=== PATIENT | female | born 1955 | race Caucasian/White ===

== ENCOUNTER → 2018-11-16 | Outpatient (CLI) | payer BC ==
[~2018-11-16] MED LIST: BARIUM SULFATE 40% (APPLE) 148 GM PWD. PO ONE
--- NOTE | 2018-11-16 11:36 | RAD ---
Indication: Dysphagia. TECHNIQUE: Fluoroscopy-guided video swallow study with total 4 time of 1.9 seconds and multiple fluoroscopy images captured. COMPARISON: None FINDINGS: Aspiration below the level of cords is seen with thin liquids bouncing of the vallecular residue. The residue seen to clear with patient swallowing with head turned study was right side. No aspiration or penetration seen with solid food. IMPRESSION: As above. Please see detailed notes by speech pathologist in patient's chart for full information. Electronically signed by: Floyd Posey DO (11/16/2018 11:33 AM) [facility]
== END | disposition home or self-care (01) ==
LOC: RAD 09:55
PROVIDERS: ATTEND Internal Medicine
DX: R13.10 Dysphagia, unspecified (principal); R47.1 Dysarthria and anarthria
CPT/HCPCS: 74230; 92526; 92611

== ENCOUNTER 2021-11-29 20:30 | Emergency (ER) | payer BC, OTHER ==
[~2021-11-29] VITALS: Ht 172.7 cm; Wt 75.0 kg
[2021-11-29 21:20] LABS: BASO % 1 % (0-3); EOS # 0.1 x10^3/uL (0.0-0.7); EOS % 2 % (0-3); HEMATOCRIT 39.4 % (36.0-47.0); LYMPH # 1.8 x10^3/uL (1.0-4.8); LYMPH % 23 % (24-48); MEAN CORPUSCULAR HEMOGLOBIN 31 pg (25-35); MEAN CORPUSCULAR HGB CONC 33 g/dL (31-37); MEAN CORPUSCULAR VOLUME 93 fL (79-100); MONO # 0.4 x10^3/uL (0.0-1.1); MONO % 5 % (0-9); NEUT # 5.6 x10^3/uL (1.8-7.7); NEUT % 70 % (31-73); PLATELET COUNT 287 x10^3/uL (140-400); RED BLOOD COUNT 4.26 x10^6/uL (3.50-5.40); RED CELL DISTRIBUTION WIDTH 13.8 % (11.5-14.5)
[2021-11-29 21:29] LABS: CALCIUM 9.3 mg/dL (8.5-10.1); CREATININE 0.7 mg/dL (0.6-1.0); GFR 83.5; POTASSIUM 4.2 mmol/L (3.5-5.1)
[2021-11-29 21:35] LABS: ALBUMIN 3.9 g/dL (3.4-5.0); ALBUMIN/GLOBULIN RATIO 1.2 (1.0-1.7); TOTAL BILIRUBIN 0.2 mg/dL (0.2-1.0); TOTAL PROTEIN 7.2 g/dL (6.4-8.2)
--- NOTE | 2021-11-29 21:45 | RAD ---
XR NECK SOFT TISSUE, XR CHEST 1V INDICATION: choking episode on chicken food bolus . COMPARISON STUDY: None. FINDINGS: Neck: No prevertebral soft tissue swelling. No radiopaque foreign body. Lungs: Normal lung volume. No pulmonary mass or consolidation. The tracheobronchial tree and hilar st ructures are normal. Pleura: No pleural effusion or pneumothorax. Heart and Mediastinum: The cardiomediastinal silhouette is normal. The great vessels of the thorax ar e normal. Bones and Soft Tissues: The bones and soft tissues are within normal limits. IMPRESSION: 1. No radiopaque foreign body. 2. No prevertebral soft tissue swelling. 3. No focal airspace disease. Electronically signed by: Marcos Shea MD (11/29/2021 9:42 PM) [facility]arolina
--- NOTE | 2021-11-29 22:30 | PHYS DOC ---
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 She presents for evaluation following a choking episode at home. Patient was eating chicken and took a big bite and began choking. performed the Heimlich maneuver twice and called EMS for help. On EMS arrival patient had elevated work of breathing and was requiring significant supplemental oxygen (she was on a nonrebreather mask en route). EMS suctioned several times and retrieved some chicken from the patient's pharynx. On arrival to the emergency department patient is alert and oriented x4, pleasantly and appropriately interactive and in absolutely no acute distress with appropriate vital signs. We have been able to de-escalate her to minimal nasal cannula oxygen supplementation. She is able to speak comfortably in full sentences and states her throat is a little sore but that otherwise she feels fine. She felt well before the onset of the choking episode. Review of Systems Review of Systems A 12 point review of systems was completed and was negative except where noted in HPI above. Allergies Allergies Allergies Coded Allergies Type Severity Reaction Last Updated Verified Sulfa (Sulfonamide Antibiotics) Allergy Intermediate 11/29/21 Yes gluten Allergy Intermediate 11/29/21 Yes Physical Exam Physical Exam 66-year-old female appearing nontoxic and in no acute distress. Head is normocephalic and atraumatic. Neck is supple and nontender. Oropharynx is moist. No posterior oropharyngeal erythema, tonsillar exudate or swelling or uvular deviation. Patient is tolerating secretions normally and speaking comfortably in a normal tone of voice. Lungs are clear to auscultation at all stations. No increased work of breathing, no tachypnea. There is a normal S1 and S2 without rubs or gallops and capillary refill is appropriate, less than 2 seconds globally. There is a regular rhythm. Abdomen is soft, nontender n ondistended. Skin is warm and dry without cyanosis, clubbing or edema. Psychiatrically, the patient demonstrates appropriate mood and affect and is alert. Current Patient Data Vital Signs Vital Signs Date Time Temp Pulse Resp B/P (MAP) Pulse Ox O2 Delivery O2 Flow Rate FiO2 11/29/21 20:30 97.9 84 20 155/69 (97) 99 NonRebreather Mask 4.0 97.9 Lab Values Laboratory Tests Test 11/29/21 21:05 White Blood Count 8.0 x10^3/uL (4.0-11.0) Red Blood Count 4.26 x10^6/uL (3.50-5.40) Hemoglobin 13.0 g/dL (12.0-15.5) Hematocrit 39.4 % (36.0-47.0) Mean Corpuscular Volume 93 fL (79-100) Mean Corpuscular Hemoglobin 31 pg (25-35) Mean Corpuscular Hemoglobin Concent 33 g/dL (31-37) Red Cell Distribution Width 13.8 % (11.5-14.5) Platelet Count 287 x10^3/uL (140-400) Neutrophils (%) (Auto) 70 % (31-73) Lymphocytes (%) (Auto) 23 % (24-48) L Monocytes (%) (Auto) 5 % (0-9) Eosinophils (%) (Auto) 2 % (0-3) Basophils (%) (Auto) 1 % (0-3) Neutrophils # (Auto) 5.6 x10^3/uL (1.8-7.7) Lymphocytes # (Auto) 1.8 x10^3/uL (1.0-4.8) Monocytes # (Auto) 0.4 x10^3/uL (0.0-1.1) Eosinophils # (Auto) 0.1 x10^3/uL (0.0-0.7) Basophils # (Auto) 0.0 x10^3/uL (0.0-0.2) Sodium Level 138 mmol/L (136-145) Potassium Level 4.2 mmol/L (3.5-5.1) Chloride Level 103 mmol/L (98-107) Carbon Dioxide Level 28 mmol/L (21-32) Anion Gap 7 (6-14) Blood Urea Nitrogen 24 mg/dL (7-20) H Creatinine 0.7 mg/dL (0.6-1.0) Estimated GFR (Cockcroft-Gault) 83.5 BUN/Creatinine Ratio 34 (6-20) H Glucose Level 146 mg/dL (70-99) H Calcium Level 9.3 mg/dL (8.5-10.1) Total Bilirubin 0.2 mg/dL (0.2-1.0) Aspartate Amino Transferase (AST) 18 U/L (15-37) Alanine Aminotransferase (ALT) 23 U/L (14-59) Alkaline Phosphatase 103 U/L (46-116) Total Protein 7.2 g/dL (6.4-8.2) Albumin 3.9 g/dL (3.4-5.0) Albumin/Globulin Ratio 1.2 (1.0-1.7) Laboratory Tests 11/29/21 21:05 Laboratory Tests 11/29/21 21:05 EKG EKG [] Radiology/Procedures Radiology/Procedures XR NECK SOFT TISSUE, XR CHEST 1V INDICATION: choking episode on chicken food bolus . COMPARISON STUDY: None. FINDINGS: Neck: No prevertebral soft tissue swelling. No radiopaque foreign body. Lungs: Normal lung volume. No pulmonary mass or consolidation. The tracheobronchial tree and hilar structures are normal. Pleura: No pleural effusion or pneumothorax. Heart and Mediastinum: The cardiomediastinal silhouette is normal. The great vessels of the thorax are normal. Bones and Soft Tissues: The bones and soft tissues are within normal limits. IMPRESSION: 1. No radiopaque foreign body. 2. No prevertebral soft tissue swelling. 3. No focal airspace disease. Electronically signed by: Nelly Antony MD (11/29/2021 9:42 PM) [facility] DICTATED and SIGNED BY: NELLY ANTONY MD DATE: 11/29/212138 Course & Med Decision Making Course & Med Decision Making Patient has been observed uneventfully here in the emergency department for multiple hours and is completely back to her baseline from a respiratory standpoint. She is on room air, breathing comfortably and speaking comfortably in full sentences. She denies any shortness of breath, chest discomfort, throat pain or any other persistent symptoms. She feels back to normal. Labs and plain films of the neck and chest are without evidence of acute process. In view of reassuring work-up in this well-appearing female with appropriate vital signs on room air, will discharge home to follow-up closely with primary care. Patient and her understand that if she feels worse instead of better, has recurrent symptoms or develops other new symptoms of concern that she should return to the emergency department immediately for reevaluation. All questions are answered. Dragon Disclaimer Dragon Disclaimer This electronic medical record was generated, in whole or in part, using a voice recognition dictation system. Departure Departure Impression: Primary Impression: Choking in adult Disposition: 01 HOME / SELF CARE / HOMELESS Condition: IMPROVED Referrals: ERIK LAMAS MD (PCP) Patient Instructions: Choking, Adult Additional Instructions: Follow-up very closely with your primary care doctor in the office in the next 2 to 4 days for reevaluation of your symptoms and a discussion of next best steps in care. Return to the emergency department right away for worsening symptoms of any kind or with any other new symptoms of concern JOYCE CARRILLO MD Nov 29, 2021 22:30
[2021-11-29 22:33] VITALS: BP 137/92
== END 2021-11-29 22:40 | disposition home or self-care (01) ==
LOC: ER 20:30
DX: R09.89 Other specified symptoms and signs involving the circulatory and respiratory systems (principal); Z88.2 Allergy status to sulfonamides; Z88.8 Allergy status to other drugs, medicaments and biological substances
CPT/HCPCS: 31720; 36415; 70360; 71045; 80053; 85025; 94760; 99285-25